=== PATIENT | female | born 1970 | race Hispanic/Latino ===

== ENCOUNTER 2017-10-30 22:14 | Emergency (ER) | payer SELFPAY ==
[2017-10-30 22:15] VITALS: BMI 21.9
[2017-10-30 22:25] VITALS: TEMP 97.7
--- NOTE | 2017-10-31 00:32 | ED PDOC ---
Arrival/HPI - General Chief Complaint: Chest Pain Time Seen by Provider: 10/30/17 23:24 Historian: Patient - History of Present Illness Narrative History of Present Illness (Text): 10/30/17 23:30 46 year old female, who denies any significant past medical history, presents to the emergency department complaining of intermittent chest pain and shortness of breath that began 3 hours ago. She describes the pain as "really bad pain". She denies taking any medication and states she has not seen a doctor in years. Patient denies any history of recently being sick. Patient is a smoker. Patient denies any fever, chills, nausea, vomiting, diarrhea, urinary symptoms, back pain, neck pain, headache, dizziness, or any other complaints. PMD: None Time/Duration: Other (3 hours ) Symptom Onset: Sudden Symptom Course: Intermittent Activities at Onset: Light Context: Home Past Medical History - Provider Review Nursing Documentation Reviewed: Yes - Infectious Disease Hx of Infectious Diseases: None - Tetanus Immunization Tetanus Immunization: Up to Date - Past Medical History Past Medical History: No Previous - Cardiac Hx Cardiac Disorders: No - Pulmonary Hx Respiratory Disorders: No - Musculoskeletal/Rheumatological Hx Falls: No - Psychiatric Hx Depression: Yes Hx Emotional Abuse: No Hx Physical Abuse: No Hx Substance Use: Yes - Surgical History Hx Appendectomy: Yes Hx Cholecystectomy: Yes - Suicidal Assessment Feels Threatened In Home Enviroment: No Family/Social History - Physician Review Nursing Documentation Reviewed: Yes Family/Social History: No Known Family HX Smoking Status: 1 pack/day Hx Alcohol Use: Yes Hx Substance Use: Yes Hx Substance Use Treatment: Yes Allergies/Home Meds Allergies/Adverse Reactions: Allergies No Known Allergies Allergy (Verified 10/31/17 03:52) Review of Systems - Physician Review All systems were reviewed & negative as marked: Yes - Review of Systems Constitutional: absent: Fevers, Other (Chills) Respiratory: SOB Cardiovascular: Chest Pain Gastrointestinal: absent: Diarrhea, Nausea, Vomiting Genitourinary Female: absent: Dysuria, Frequency, Hematuria Musculoskeletal: absent: Back Pain, Neck Pain Neurological: absent: Headache, Dizziness Physical Exam Vital Signs Reviewed: Yes Vital Signs Temp Pulse Resp BP Pulse Ox 10/31/17 06:52 75 18 129/79 99 10/31/17 04:31 77 17 126/82 98 10/31/17 02:12 69 18 115/68 98 10/30/17 22:17 97.7 F 84 18 118/74 97 Temperature: Afebrile Blood Pressure: Normal Pulse: Regular Respiratory Rate: Normal Appearance: Positive for: Well-Appearing, Non-Toxic, Comfortable Pain Distress: None Mental Status: Positive for: Alert and Oriented X 3 - Systems Exam Head: Present: Atraumatic, Normocephalic Pupils: Present: PERRL Extroacular Muscles: Present: EOMI Conjunctiva: Present: Normal Mouth: Present: Moist Mucous Membranes Neck: Present: Normal Range of Motion Respiratory/Chest: Present: Clear to Auscultation, Good Air Exchange. No: Respiratory Distress, Accessory Muscle Use Cardiovascular: Present: Regular Rate and Rhythm, Normal S1, S2. No: Murmurs Abdomen: No: Tenderness, Distention, Peritoneal Signs Back: Present: Normal Inspection Upper Extremity: Present: Normal Inspection. No: Cyanosis, Edema Lower Extremity: Present: Normal Inspection. No: Edema Neurological: Present: GCS=15, CN II-XII Intact, Speech Normal Skin: Present: Warm, Dry, Normal Color. No: Rashes Psychiatric: Present: Alert, Oriented x 3, Normal Insight, Normal Concentration Medical Decision Making ED Course and Treatment: 10/30/17 23:30 Impression: 46 year old female presents complaining of intermittent chest pain and shortness of breath that began 3 hours ago. Plan: -- Labs -- EKG -- Chest X-ray -- Aspirin, Nitrostat -- Urinalysis -- Reassess and disposition Progress Notes: EKG shows NSR at 79 BPM with Normal axis. Normal intervals. Normal EKG. Interpreted by me. CXR Impression: As read by me, no pneumothorax, no pneumonia, no cardiomegaly, no infiltrates EXAM: CT Angiography Chest With Intravenous Contrast Dictated and Authenticated by: Yamileth Shields MD 10/31/2017 4:08 AM IMPRESSION: No pulmonary embolism. Mild centrilobular emphysema with dependent atelectasis - Lab Interpretations Lab Results: 10/31/17 00:18 10/31/17 00:18 Lab Results 10/31/17 05:20: Lactate Dehydrogenase 388, Total Creatine Kinase 47, Troponin I < 0.01 10/31/17 04:41: Urine Opiates Screen Negative, Urine Methadone Screen Negative, Ur Barbiturates Screen Negative, Ur Phencyclidine Scrn Negative, Ur Amphetamines Screen Negative, U Benzodiazepines Scrn Negative, U Oth Cocaine Metabols Positive H, U Cannabinoids Screen Negative 10/31/17 04:41: Urine Color Yellow, Urine Appearance Sl cloudy, Urine pH 7.0, Ur Specific [place] 1.010, Urine Protein Negative, Urine Glucose (UA) Negative, Urine Ketones Negative, Urine Blood Negative, Urine Nitrate Negative, Urine Bilirubin Negative, Urine Urobilinogen 0.2, Ur Leukocyte Esterase Negative 10/31/17 00:18: Sodium 139, Potassium 3.7, Chloride 106, Carbon Dioxide 27, Anion Gap 10, BUN 17, Creatinine 0.7, Est GFR ( Amer) > 60, Est GFR (Non- Af Amer) > 60, Random Glucose 113 H, Calcium 9.2, Total Bilirubin < 0.1 L, AST 20, ALT 23, Alkaline Phosphatase 81, Lactate Dehydrogenase 381, Total Creatine Kinase 48, Troponin I < 0.01, Total Protein 6.8, Albumin 3.6, Globulin 3.2, Albumin/Globulin Ratio 1.1 10/31/17 00:18: PT 10.6, INR 0.93, D-Dimer, Quantitative 359 H 10/31/17 00:18: WBC 8.6, RBC 4.90, Hgb 14.4, Hct 42.5, MCV 86.7, MCH 29.4, MCHC 33.9, RDW 12.9, Plt Count 354, MPV 8.9, Gran % 57.6, Lymph % (Auto) 34.1, Turner % (Auto) 5.1, Eos % (Auto) 2.7, Baso % (Auto) 0.5, Gran # 4.98, Lymph # (Auto) 3.0, Turner # (Auto) 0.4, Eos # (Auto) 0.2, Baso # (Auto) 0.04 I have reviewed the lab results: Yes - RAD Interpretation Radiology Orders: 10/30/17 23:38 CHEST ONE VIEW [RAD] Stat 10/31/17 02:28 ANGIO CHEST PE PROTOCOL [CT] Stat - EKG Interpretation Interpreted by ED Physician: Yes Type: 12 lead EKG - Medication Orders Current Medication Orders: Discontinued Medications Aspirin (Aspirin Chewable) 324 mg PO STAT STA Stop: 10/30/17 23:42 Last Admin: 10/31/17 00:17 Dose: 324 mg Ibuprofen (Motrin Tab) 800 mg PO STAT STA Stop: 10/31/17 06:15 Last Admin: 10/31/17 06:25 Dose: 800 mg Nitroglycerin (Nitrostat Sl Tab) 0.4 mg SL STAT STA Stop: 10/30/17 23:42 Last Admin: 10/31/17 00:17 Dose: 0.4 mg Ondansetron HCl (Zofran Odt) 4 mg PO STAT STA Stop: 10/31/17 06:15 Last Admin: 10/31/17 06:25 Dose: 4 mg Oxycodone/Acetaminophen (Percocet 5/325 Mg Tab) 2 tab PO STAT STA Stop: 10/31/17 06:15 Last Admin: 10/31/17 06:24 Dose: 2 tab MAR Pain Assessment Document 10/31/17 06:24 RD (Rec: 10/31/17 06:25 RD [id number]) Pain Reassessment Is this a pain reassessment? No Sleep Is patient sleeping during reassessment? No Presence of Pain Presence of Pain Yes Pain Scale Used Pain Scale Used Numeric Location Left, Right or Bilateral Left Upper or Lower Upper Pain Location Body Site Chest Description Description Constant Intensity of Pain at present 7 Pain Behavior Irritability - Scribe Statement The provider has reviewed the documentation as recorded by the Neva Linton Provider Scribe Attestation: All medical record entries made by the Dwightibshari were at my direction and personally dictated by me. I have reviewed the chart and agree that the record accurately reflects my personal performance of the history, physical exam, medical decision making, and the department course for this patient. I have also personally directed, reviewed, and agree with the discharge instructions and disposition. Disposition/Present on Arrival - Present on Arrival Any Indicators Present on Arrival: No History of DVT/PE: No History of Uncontrolled Diabetes: No Urinary Catheter: No History of Decub. Ulcer: No History Surgical Site Infection Following: None - Disposition Have Diagnosis and Disposition been Completed?: Yes Diagnosis: Atypical chest pain, Cocaine use Disposition: HOME/ ROUTINE Disposition Time: 06:37 Patient Plan: Discharge Condition: GOOD Discharge Instructions (ExitCare): Cocaine Use Disorder, Chest Pain (ED) Additional Instructions: Antonia- Your EKG, Your Blood Work, You CXR and your CT Scan, all normal. We did however find cocaine in your system. Please follow up with your doctor. Cocaine and Cigarettes are not good for your heart. Please take better care of yourself. Return to us if worse or new problems. Best- Dr. Jacobo Springer Referrals: PCP,NO [Primary Care Provider] - Follow up with primary Forms: [facility] (Faroese), WORK NOTE
[2017-10-31 00:56] LABS: BASO # 0.04 K/mm3 (0.0-2.0); BASO % 0.5 % (0.0-3.0); EOS # 0.2 (0.0-0.7); EOS % 2.7 % (1.5-5.0); GRAN # 4.98 (1.4-6.5); GRAN % 57.6 % (50.0-68.0); HEMOGLOBIN 14.4 g/dL (12.0-16.0); LYMPH % 34.1 % (22.0-35.0); MEAN CELL VOLUME 86.7 fl (80.0-105.0); MEAN CORPUSCULAR HEMOGLOBIN 29.4 pg (25.0-35.0); MEAN CORPUSCULAR HGB CONC 33.9 g/dl (31.0-37.0); MEAN PLATELET VOLUME 8.9 fl (7.0-11.0); MONO # 0.4 (0.1-0.6); MONO % 5.1 % (1.0-6.0); RBC 4.9 10^6/uL (3.5-6.1); RED CELL DISTRIBUTION WIDTH 12.9 % (11.5-14.5); WHITE BLOOD COUNT 8.6 10^3/ul (4.5-11.0)
[2017-10-31 01:02] LABS: ALB/GLOB RATIO 1.1 (1.1-1.8); ALBUMIN 3.6 g/dL (3.0-4.8); ALT/SGPT 23 U/L (7-56); AST/SGOT 20 U/L (14-36); BLOOD UREA NITROGEN 17 mg/dL (7-21); CALCIUM 9.2 mg/dL (8.4-10.5); GFR AFRICAN-AMERICAN > 60; GFR NON-AFRICAN AMERICAN > 60
[2017-10-31 01:13] LABS: INR 0.93 (0.93-1.08); PROTHROMBIN TIME 10.6 SECONDS (9.4-12.5); TROPONIN I < 0.01 ng/mL
[2017-10-31] MEDS ORDERED: Iodixanol 320 MG/ML 100 ML BOTTLE IV ONE (02:33)
[2017-10-31 06:11] LABS: URINE BILIRUBIN NEGATIVE (NEGATIVE); URINE BLOOD NEGATIVE (NEGATIVE); URINE GLUCOSE (UA) NEGATIVE (NEGATIVE); URINE LEUKOCYTE ESTERASE NEGATIVE Leu/uL (NEGATIVE); URINE PROTEIN NEGATIVE mg/dL (<30 mg/dL); URINE UROBILINOGEN 0.2 E.U./dL (<1 E.U./dL)
[2017-10-31 06:14] LABS: URINE APPEARANCE SL CLOUDY (CLEAR); URINE COLOR YELLOW (YELLOW)
[2017-10-31] MEDS ORDERED: Oxycodone/Acetaminophen 5/325 mg Tab PO STA (06:14)
[2017-10-31 06:20] LABS: BARBITURATES, UR NEGATIVE (NEGATIVE); BENZODIAZEPINES, UR NEGATIVE (NEGATIVE); OPIATES, UR NEGATIVE (NEGATIVE); PHENCYCLIDINE, UR NEGATIVE (NEGATIVE)
[2017-10-31 06:26] LABS: TROPONIN I < 0.01 ng/mL
[2017-10-31 06:53] VITALS: BP 129/79; PULSE 75; RESP 18; O2SAT 99
--- NOTE | 2017-10-31 07:41 | RAD ---
PROCEDURE: CHEST RADIOGRAPH, 1 VIEW HISTORY: Chest Pain COMPARISON: None available. FINDINGS: LUNGS: Clear. PLEURA: No pneumothorax or pleural fluid seen. CARDIOVASCULAR: Normal. OSSEOUS STRUCTURES: No significant abnormalities. VISUALIZED UPPER ABDOMEN: Normal. OTHER FINDINGS: None. IMPRESSION: No acute cardiopulmonary disease appreciated.
--- NOTE | 2017-10-31 08:35 | CT ---
PROCEDURE: CT Chest with contrast (Pulmonary Angiogram) HISTORY: positive d-dimer, chest pain COMPARISON: Chest radiograph 10/31/2017 3:06 a.m.. TECHNIQUE: Axial computed tomography images were obtained of the chest in the pulmonary arterial phase of enhancement. Coronal and sagittal reformatted images were created and reviewed. Intravenous contrast dose: Visipaque 320, 100 cc Radiation dose: Total exam DLP = 349.06 mGy-cm. This CT exam was performed using one or more of the following dose reduction techniques: Automated exposure control, adjustment of the mA and/or kV according to patient size, and/or use of iterative reconstruction technique. FINDINGS: PULMONARY ARTERIES: Unremarkable. No pulmonary embolism. AORTA: No acute findings. No thoracic aortic aneurysm. LUNGS: Mild centrilobular emphysematous changes are appreciated, apical predominant. No infiltrate bilaterally. Limited bilateral basilar dependent atelectasis identified. No definite pulmonary masses including the central airways. PLEURAL SPACES: Unremarkable. No effusion or pneuomothorax. HEART: Unremarkable. No cardiomegaly. No significant pericardial effusion. LYMPH NODES: No lymphadenopathy. BONES, CHEST WALL: Unremarkable. No fracture or destructive lesion OTHER FINDINGS: Prior cholecystectomy evident incidentally. IMPRESSION: Unremarkable CT pulmonary angiogram. No pulmonary embolus. Mild centrilobular emphysema appreciated, apical predominant. No infiltrate, pleural or pericardial effusion appreciable. Concordant preliminary report from [facility], 10/31/2017.
--- NOTE | 2017-10-31 19:26 | CARD ---
APPROVED REPORT EKG Measurement Heart [id number] <Conclusion> Normal sinus rhythm Normal ECG
== END 2017-10-31 06:52 | disposition home or self-care (01) ==
LOC: ED 22:14
DX: F14.90 Cocaine use, unspecified, uncomplicated (principal); R07.89 Other chest pain; F17.210 Nicotine dependence, cigarettes, uncomplicated
CPT/HCPCS: 71045; 71275; 80053; 81003; 82550; 83615; 84484; 85025; 85378; 85610; 93005; 99284; G0480; Q9967